=== PATIENT | female | born 1990 | race Caucasian/White ===

== ENCOUNTER 2016-08-19 18:26 | Emergency (ER) ==
[2016-08-19 18:39] VITALS: BP 119/71; TEMP 97.6; BMI 33.0
[2016-08-19 19:18] LABS: BILIRUBIN,URINE Negative (NEGATIVE); KETONES,URINE Negative (NEGATIVE); LEUKOCYTE ESTERASE ,URINE Negative (NEGATIVE); NITRITE,URINE Negative (NEGATIVE); PROTEIN,URINE Negative (NEGATIVE); URINE, BLOOD Negative (NEGATIVE)
[2016-08-19 19:19] LABS: ADD URINE MICROSCOPIC YES
--- NOTE | 2016-08-19 19:25 | ED.PDOC ---
General ED Provider: Dr. BORIS CALDERON-ER Chief Complaint: Respiratory Complaint Stated Complaint: im coughing up yellow stuff for one week=--no fever or hemoptysis Time Seen by Physician: 19:23 Mode of Arrival: Walk-In Information Source: Patient Exam Limitations: No limitations Nursing and Triage Documentation Reviewed and Agree: Yes Respiratory Complaint Exam - Respiratory Complaint/Exam Onset/Duration: 3 days Symptoms Are: Still present Timing: Intermittent Initial Severity: Mild Current Severity: Mild Location: Chest Character: Reports: Productive cough Aggravating: Reports: URI Alleviating: Reports: None Associated Signs and Symptoms: Reports: URI, Nasal congestion, Sore throat. Denies: Rapid breathing, Dyspnea, Fever, Chills, Chest pain, Pleuritic chest pain, Wheezing, Hemoptysis, Dizziness, Calf pain, Calf swelling, Edema, Hoarseness, Sinus discomfort, Vomiting, Weight loss, Decreased oral intake, Increased thirst, Increased appetite, Increased urination History of Healthcare-Acquired Pneumonia: No Related Surgical History: Reports: None Pulmonary Embolism Risk Factors: Bedrest Cardiac Risk Factors: Reports: Smoking Pseudomonas Risk Factors: Reports: None Tuberculosis Risk Factors: Reports: Smoking Status Asthmaticus Risk Factors: Reports: None Home Oxygen Use: Yes Recent Stress Test: No Recent Echo/LV Function: No Current Antibiotic Use: No Current Asthma Medication Use: No Respiratory Distress: None Inadequate Respiratory Effort: No Dysphagia Present: No Stridor Present: No JVD Present: No Accessory Muscle Use: No Retractions: Not Present Diminished Breath Sounds: No Sinus Tenderness: None Grunting Respirations: No Kussmaul Respirations: No Differential Diagnoses: Bronchitis Review of Systems - Review Of Systems Constitutional: Reports: No symptoms Eyes: Reports: No symptoms Ears, Nose, Mouth, Throat: Reports: Nose discharge Respiratory: Reports: Cough Cardiac: Reports: No symptoms GI: Reports: No symptoms : Reports: No symptoms Musculoskeletal: Reports: No symptoms Skin: Reports: No symptoms Neurological: Reports: No symptoms Endocrine: Reports: No symptoms Hematologic/Lymphatic: Reports: No symptoms All Other Systems: Reviewed and Negative Past Medical History - Past Medical History Previously Healthy: Yes Endocrine: Reports: None Cardiovascular: Reports: None Respiratory: Reports: None Hematological: Reports: None Gastrointestinal: Reports: None Genitourinary: Reports: None Neuro/Psych: Reports: Anxiety, Depression Musculoskeletal: Reports: None Cancer: Reports: None Last Menstrual Period: 02/21 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 - Surgical History General Surgical History: Reports: (x2), Cholecystectomy - Family History Family History: Reports: Heart (FATHER COPD AND CAD), Diabetes (PT WIOTH HYPERGLYCEMIAL AND TOXEMIA FIRST ), Lung, Liver, Other (MOTHER HEP C AND PSORIASIS), Unknown - Social History Smoking Status: Current some day smoker Hx Substance Use: No Alcohol Screening: None - Immunizations Tetanus Shot up to Date: Yes Physical Exam - Physical Exam Appearance: Well-appearing, No pain distress, Well-nourished Eyes: NICOLA, EOMI, Conjunctiva clear ENT: Ears normal, Nose normal, Oropharynx normal Neck: Supple Respiratory: Airway patent, Breath sounds clear, Breath sounds equal, Respirations nonlabored Cardiovascular: RRR, Pulses normal, No rub, No murmur GI/: Soft, Nontender, No masses, Bowel sounds normal, No Organomegaly Musculoskeletal: Normal strength, ROM intact, No edema, No calf tenderness Skin: Warm, Dry, Normal color Neurological: Sensation intact, Motor intact, Reflexes intact, Cranial nerves intact, Alert, Oriented Psychiatric: Affect appropriate, Mood appropriate Re-Evaluation - Re-Evaluation Time of Re-Evaluation: 19:25 Status: Unchanged Vital Signs Stable: Yes Pain Level: 0 Appearance: NAD Lungs: Clear Skin: Warm and Dry Neuro: Alert and Oriented X3 CV: RRR Critical Care Note - Critical Care Note Total Time (mins): 0 Course - Course Orders, Labs, Meds: Lab Review 08/19/16 19:00 Urine Color Yellow Urine Clarity Cloudy Urine pH 8.0 Ur Specific [place] 1.020 Urine Protein Negative Urine Glucose (UA) Negative Urine Ketones Negative Urine Blood Negative Urine Nitrite Negative Urine Bilirubin Negative Urine Urobilinogen 0.2 Ur Leukocyte Esterase Negative Ur Squamous Epith Cells Pending Orders Category Date Time Status URINALYSIS C & S IF INDICATED Stat LAB 08/19/16 19:00 Results URINE CULTURE Stat LAB 08/19/16 19:00 Received Vital Signs: Temp Pulse Resp BP Pulse Ox 08/19/16 18:28 97.6 F 116 H 20 119/71 97 Departure - Departure Time of Disposition: 19:25 Disposition: HOME SELF-CARE Discharge Problem: Bronchitis Instructions: Acute Bronchitis (ED) Condition: Good Pt referred to PMD for follow-up: Yes Additional Instructions: keflex 2550mg qid x 7days--stop smoking...f/u with ob Allergies/Adverse Reactions: Allergies horse dander Allergy (Mild, Verified 08/19/16 18:40) rash and itchy rabbit dander Allergy (Mild, Verified 08/19/16 18:40) rash and itchy AUSSIE SHAMPOO Adverse Reaction (Uncoded 08/19/16 18:40) Rash Snapple drink Adverse Reaction (Uncoded 08/19/16 18:40) Home Medications: Ambulatory Orders 1 [No Reported Medications] 08/19/16 Disposition Discussed With: Patient
== END 2016-08-19 19:33 | disposition home or self-care (01) ==
LOC: ED 18:26
DX: J20.9 Acute bronchitis, unspecified (principal); F17.210 Nicotine dependence, cigarettes, uncomplicated
CPT/HCPCS: 81001; 87086; 99283

== ENCOUNTER 2016-11-19 20:02 | Emergency (ER) ==
[2016-11-19 20:14] VITALS: BP 131/87; TEMP 97.9; BMI 33.8
[2016-11-19] MEDS ORDERED: ZOFRAN 4 MG/2 ML IM STA (20:23)
[2016-11-19] MEDS ORDERED: DEMEROL 25 MG/ML SYRINGE IM STA (20:23)
[2016-11-19 20:33] LABS: BASOPHILS # (AUTO) 0.1 K/uL (0-0.2); BASOPHILS % (AUTO) 0.9 % (0.0-3.0); EOSINOPHILS # (AUTO) 0.6 K/ul (0.0-0.7); EOSINOPHILS % (AUTO) 5.5 % (0.0-7.0); HEMATOCRIT 31.2 % (37.0-47.0); HEMOGLOBIN 10.6 g/dl (12.0-16.0); IMMATURE GRANULOCYTE % (AUTO) 0.8 % (0.0-5.0); LYMPHOCYTES % (AUTO) 28.7 (10.0-50.0); MEAN CORPUSCULAR HEMOGLOBIN 31.7 pg (27.0-31.0); MEAN CORPUSCULAR VOLUME 93.4 fl (81.0-99.0); MONOCYTES # (AUTO) 0.8 K/uL (0.4-2.0); MONOCYTES % (AUTO) 7.6 (0-10); NEUTROPHILS % (AUTO) 56.5; PLATELET COUNT 340 10^3/uL (140-440); RED BLOOD COUNT 3.34 10^6/ul (4.20-5.40); WHITE BLOOD COUNT 10.56 K/ul (4.6-10.2)
--- NOTE | 2016-11-19 20:48 | ED.PDOC ---
General ED Provider: Dr. JOSE BENNETT Chief Complaint: Shoulder Pain/Injury Stated Complaint: Patient had c section on wednesday, she is been hurting in surgical site more and called the surgeon, he suggested to come to ER for the evaluation. Time Seen by Physician: 20:46 Mode of Arrival: Walk-In Information Source: Patient Nursing and Triage Documentation Reviewed and Agree: Yes GI Complaint Exam - Abdominal Pain Complaint/Exam Onset: Gradual Symptoms Are: Still present Timing: Constant Initial Severity: Moderate Current Severity: Moderate Location of Pain: Discrete Character: Reports: Dull, Aching Aggravating: Reports: Movement, Deep breaths Alleviating: Reports: None Associated Signs and Symptoms: Reports: Nausea. Denies: Diaphoresis, Fever, Cough, Chest pain, Dizziness, Back pain, Constipation, Blood in stool, Dysuria, Urinary frequency, Decreased urine output, Decreased appetite, Vaginal bleeding , Vaginal discharge, Vomiting, Diarrhea, Sore throat, Decreased activity AAA Risk Factors: Reports: None Cardiac Risk Factors: Reports: None Ectopic Risk Factors: Reports: None Ovarian Torsion Risk Factors: Reports: None Surgical Obstruction Risk Factors: Reports: None Related Surgical History: Reports: None (c section) Differential Diagnoses: Other (intra abdominal pain) Review of Systems - Review Of Systems Constitutional: Reports: No symptoms Eyes: Reports: No symptoms Ears, Nose, Mouth, Throat: Reports: No symptoms Respiratory: Reports: No symptoms Cardiac: Reports: No symptoms GI: Reports: Abdominal pain : Reports: No symptoms Musculoskeletal: Reports: No symptoms Skin: Reports: No symptoms Neurological: Reports: No symptoms Endocrine: Reports: No symptoms Hematologic/Lymphatic: Reports: No symptoms All Other Systems: Reviewed and Negative Past Medical History - Past Medical History Previously Healthy: Yes Endocrine: Reports: None Cardiovascular: Reports: None Respiratory: Reports: None Hematological: Reports: None Gastrointestinal: Reports: None Genitourinary: Reports: None Neuro/Psych: Reports: Anxiety, Depression Musculoskeletal: Reports: None Cancer: Reports: None Last Menstrual Period: just gave last wednesday 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 - Surgical History General Surgical History: Reports: (x2), Cholecystectomy - Family History Family History: Reports: Heart (FATHER COPD AND CAD), Diabetes (PT WIOTH HYPERGLYCEMIAL AND TOXEMIA FIRST ), Lung, Liver, Other (MOTHER HEP C AND PSORIASIS), Unknown - Social History Smoking Status: Current some day smoker Smoking Cessation Counseling Time: > 3 min - 10 min Hx Substance Use: No Alcohol Screening: None Physical Exam - Physical Exam Appearance: Ill-appearing, Obese Pain Distress: Moderate Eyes: NICOLA, EOMI, Conjunctiva clear ENT: Ears normal, Nose normal, Oropharynx normal Respiratory: Airway patent, Breath sounds clear, Breath sounds equal, Respirations nonlabored Cardiovascular: RRR, Pulses normal, No rub, No murmur GI/: Tender Musculoskeletal: Normal strength, ROM intact, No edema, No calf tenderness Skin: Warm, Dry, Normal color Neurological: Sensation intact, Motor intact, Reflexes intact, Cranial nerves intact, Alert, Oriented Psychiatric: Affect appropriate, Mood appropriate Interpretation - Radiology Interpretation Radiology Interpretation By: Radiologist Radiology Results: Negative Exam Interpreted: CT Scan Critical Care Note - Critical Care Note Total Time (mins): 0 Course - Course Hematology/Chemistry: 11/19/16 20:28 11/19/16 20:28 Orders, Labs, Meds: Lab Review 11/19/16 20:28 WBC 10.56 H RBC 3.34 L Hgb 10.6 L Hct 31.2 L MCV 93.4 MCH 31.7 H MCHC 34.0 RDW Coeff of Kristy 13.3 Plt Count 340 Immature Gran % (Auto) 0.8 Neut % (Auto) 56.5 Lymph % (Auto) 28.7 [place] % (Auto) 7.6 Eos % (Auto) 5.5 Baso % (Auto) 0.9 Immature Gran # (Auto) 0.1 Neut # 6.0 Lymph # 3.0 [place] # 0.8 Eos # 0.6 Baso # 0.1 Sodium 138 Potassium 3.9 Chloride 104 Carbon Dioxide 23 Anion Gap 14.9 BUN 14 Creatinine 0.77 Estimated GFR (MDRD) 91.00 BUN/Creatinine Ratio 18.18 Glucose 88 Calcium 9.1 Total Bilirubin 0.43 AST 40 H ALT 26 Alkaline Phosphatase 95 Total Protein 6.3 L Albumin 2.7 L Globulin 3.6 Albumin/Globulin Ratio 0.75 Orders Category Date Time Status CBC W/ AUTO DIFF Stat LAB 11/19/16 20:28 Completed COMPREHENSIVE METABOLIC PANEL Stat LAB 11/19/16 20:28 Completed Meperidine HCl/Pf [Demerol 25 mg/ml Syringe] MEDS 11/19/16 20:23 Discontinued 25 mg IM ONCE STA Ondansetron HCl/Pf [Zofran 4 mg/2 ml] MEDS 11/19/16 20:23 Discontinued 4 mg IM ONCE STA CT ABDOMEN/PELVIS WO CONTRAST Stat RADS 11/19/16 20:23 Completed Medications Discontinued Medications Generic Name Dose Route Start Last Admin Trade Name Freq PRN Reason Stop Dose Admin Meperidine HCl 25 mg 11/19/16 20:23 11/19/16 20:37 Demerol 25 Mg/Ml Syringe IM 11/19/16 20:24 25 mg ONCE STA Administration Ondansetron HCl 4 mg 11/19/16 20:23 11/19/16 20:37 Zofran 4 Mg/2 Ml IM 11/19/16 20:24 4 mg ONCE STA Administration Vital Signs: Temp Pulse Resp BP Pulse Ox 11/19/16 20:03 97.9 F 100 H 16 131/87 95 Departure - Departure Time of Disposition: 22:00 Disposition: HOME SELF-CARE Discharge Problem: Abdominal pain Qualifiers: Abdominal location: generalized Qualifier Code: (R10.84) Generalized abdominal pain Instructions: Abdominal Pain (ED) Condition: Good Pt referred to PMD for follow-up: Yes Additional Instructions: INCREASE HYDRATION IRON PILLS OTC NEEDS F/U WITH SURGEON. Allergies/Adverse Reactions: Allergies horse dander Allergy (Mild, Verified 11/19/16 20:12) rash and itchy rabbit dander Allergy (Mild, Verified 11/19/16 20:12) rash and itchy AUSSIE SHAMPOO Adverse Reaction (Uncoded 11/19/16 20:12) Rash Snapple drink Adverse Reaction (Uncoded 11/19/16 20:12) Home Medications: Ambulatory Orders Diazepam 5 mg PO TID PRN 11/19/16 Hydrocodone/Acetaminophen [Hydrocodon-Acetaminophen 5-325] 1 - 2 tab PO Q6H PRN 11/19/16 Ibuprofen 600 mg PO Q6H PRN 11/19/16 Disposition Discussed With: Patient, Family
[2016-11-19 21:03] LABS: ALBUMIN 2.7 g/dL (3.4-5.0); ALBUMIN/GLOBULIN RATIO 0.75; ANION GAP 14.9; BILIRUBIN,TOTAL 0.43 mg/dL (0.00-1.20); BUN/CREATININE RATIO 18.18; CALCIUM 9.1 mg/dL (8.2-10.2); CREATININE 0.77 mg/dL (0.60-1.30); POTASSIUM 3.9 mmol/L (3.5-5.10); TOTAL PROTEIN 6.3 g/dL (6.4-8.2)
--- NOTE | 2016-11-19 21:46 | CT ---
EXAM: CT Abdomen without contrast. CT Pelvis without contrast. HISTORY: Recent . Possible intra-abdominal bleed. COMPARISON: 01/11/2014. TECHNIQUE: Multiple axial images of the abdomen and pelvis were obtained without intravenous contra st. Images were reformatted in the coronal plane. FINDINGS: Please note that evaluation of the abdominal and pelvic structures is limited due to lack of intravenous contrast. Linear opacities and ground-glass opacities seen in the left lower lobe. No acute osseous abnormali ty identified. Gallbladder is absent. The liver, pancreas, spleen, adrenal glands, and kidneys demonstrate normal contour. No calcified renal stones or hydronephrosis identified. The bowel is normal in course and caliber without evidence for obstruction or inflammatory process. The appendix is normal. Uterus is enlarged. There is a small amount of high-density material and air within the endometrial cavity. No significant intraperitoneal free fluid identified. Subcutane ous edema is present within the anterior abdomen and pelvis. Note made of section scar wit h associated edema. No large subcutaneous fluid collection detected. Ventral hernia suggested on ax ial image 109 and sagittal image 62 with defect measuring approximately 2.5 x 2.6 cm. IMPRESSION: 1. Findings consistent recent section. Small amount of blood within endometrial canal. N o large hematoma identified. 2. Left lower lobe atelectasis or pneumonia.
== END 2016-11-19 22:29 | disposition home or self-care (01) ==
LOC: ED 20:02
DX: R10.84 Generalized abdominal pain (principal); G89.18 Other acute postprocedural pain; F17.210 Nicotine dependence, cigarettes, uncomplicated
CPT/HCPCS: 36415; 80053; 85025; 96372; 99283

== ENCOUNTER 2017-01-06 19:42 | Emergency (ER) ==
[2017-01-06 19:52] VITALS: BP 112/73; TEMP 98.3; BMI 34.9
[2017-01-06] MEDS ORDERED: TORADOL IM STA (21:07)
[2017-01-06 21:09] LABS: BILIRUBIN,URINE Negative (NEGATIVE); KETONES,URINE Negative (NEGATIVE); LEUKOCYTE ESTERASE ,URINE 2+ (NEGATIVE); NITRITE,URINE Positive (NEGATIVE); PH,URINE 5.5 (5-9); PROTEIN,URINE 1+ (NEGATIVE); URINE, BLOOD 2+ (NEGATIVE)
--- NOTE | 2017-01-06 21:10 | ED.PDOC ---
General ED Provider: Dr. JOSE BENNETT Chief Complaint: Back Pain Stated Complaint: Been hurting in the lower back, frequency of urination, urgency. Time Seen by Physician: 21:09 Mode of Arrival: Walk-In Information Source: Patient Primary Care Provider: DIEGO RAINEY Nursing and Triage Documentation Reviewed and Agree: Yes Musculoskeletal Complaint Exam - Back Pain Complaint/Exam Mechanism of Injury: Reports: No known trauma Symptoms Are: Still present Timing: Constant Episodes Lasting: Hours Initial Severity: Mild Current Severity: Mild Location: Reports: Discrete Character: Reports: Aching Aggravating: Reports: None Alleviating: Reports: None Associated Signs and Symptoms: Reports: Flank pain. Denies: Swelling, Redness, Bruising, Fever, Weakness, Numbness, Tingling, Abdominal pain, Bladder incontinence, Bowel incontinence, Weight loss, Pain with weight bearing TAD Risk Factors: Reports: None AAA Risk Factors: Reports: None Cauda Equina Risk Factors: Reports: None Epidural Abcess Risk Factors: Reports: None Related Surgical History: Reports: None Focal Tenderness: Yes Paraspinal Muscle Tenderness: No Paraspinal Muscle Spasm: No Scoliosis: No Lordosis: No Kyphosis: No SLR Test: Right Negative, Left Negative Hip Motion Testing Pain: Right Negative, Left Negative Focal Weakness: Present: None Focal Sensory Loss: Present: None Gait: Present: Normal Differential Diagnoses: Other (uti) Review of Systems - Review Of Systems Constitutional: Reports: No symptoms Eyes: Reports: No symptoms Ears, Nose, Mouth, Throat: Reports: No symptoms Respiratory: Reports: No symptoms Cardiac: Reports: No symptoms GI: Reports: No symptoms : Reports: Burning, Dysuria, Frequency Musculoskeletal: Reports: Back pain Skin: Reports: No symptoms Neurological: Reports: No symptoms Endocrine: Reports: No symptoms Hematologic/Lymphatic: Reports: No symptoms All Other Systems: Reviewed and Negative Past Medical History - Past Medical History Previously Healthy: Yes Endocrine: Reports: None Cardiovascular: Reports: None Respiratory: Reports: None Hematological: Reports: None Gastrointestinal: Reports: None Genitourinary: Reports: None Neuro/Psych: Reports: Anxiety, Depression Musculoskeletal: Reports: None Cancer: Reports: None Last Menstrual Period: 1 week 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 - Surgical History General Surgical History: Reports: (x2), Cholecystectomy - Family History Family History: Reports: Heart (FATHER COPD AND CAD), Diabetes (PT WIOTH HYPERGLYCEMIAL AND TOXEMIA FIRST ), Lung, Liver, Other (MOTHER HEP C AND PSORIASIS), Unknown - Social History Smoking Status: Current every day smoker, Light tobacco smoker Smoking Cessation Counseling Time: > 3 min - 10 min Hx Substance Use: No Alcohol Screening: Occasionally Physical Exam - Physical Exam Appearance: Well-appearing, No pain distress, Well-nourished Eyes: NICOLA, EOMI, Conjunctiva clear ENT: Ears normal, Nose normal, Oropharynx normal Respiratory: Airway patent, Breath sounds clear, Breath sounds equal, Respirations nonlabored Cardiovascular: RRR, Pulses normal, No rub, No murmur GI/: Soft, Nontender, No masses, Bowel sounds normal, No Organomegaly Musculoskeletal: Normal strength, ROM intact, No edema, No calf tenderness Skin: Warm, Dry, Normal color Neurological: Sensation intact, Motor intact, Reflexes intact, Cranial nerves intact, Alert, Oriented Psychiatric: Affect appropriate, Mood appropriate Critical Care Note - Critical Care Note Total Time (mins): 0 Course - Course Hematology/Chemistry: 01/06/17 21:10 01/06/17 21:10 Orders, Labs, Meds: Lab Review 01/06/17 01/06/17 20:40 21:10 WBC 14.29 H RBC 4.12 L Hgb 12.7 Hct 37.3 MCV 90.5 MCH 30.8 MCHC 34.0 RDW Coeff of Kristy 12.5 Plt Count 368 Immature Gran % (Auto) 0.3 Neut % (Auto) 58.5 Lymph % (Auto) 29.6 [place] % (Auto) 6.6 Eos % (Auto) 4.1 Baso % (Auto) 0.9 Immature Gran # (Auto) 0.0 Neut # 8.4 H Lymph # 4.2 H [place] # 1.0 Eos # 0.6 Baso # 0.1 Sodium 142 Potassium 3.7 Chloride 108 H Carbon Dioxide 25 Anion Gap 12.7 BUN 7 Creatinine 0.79 Estimated GFR (MDRD) 88.00 BUN/Creatinine Ratio 8.86 Glucose 98 Calcium 9.3 Total Bilirubin 0.27 AST 15 ALT 16 Alkaline Phosphatase 83 Total Protein 7.0 Albumin 3.7 Globulin 3.3 Albumin/Globulin Ratio 1.12 Urine Color Yellow Urine Clarity Cloudy Urine pH 5.5 Ur Specific [place] 1.015 Urine Protein 1+ Urine Glucose (UA) Negative Urine Ketones Negative Urine Blood 2+ Urine Nitrite Positive Urine Bilirubin Negative Urine Urobilinogen 0.2 Ur Leukocyte Esterase 2+ Urine Microscopic RBC 10-20 Urine Microscopic WBC 20-30 Ur Squamous Epith Cells 5-10 Urine Bacteria 2+ Orders Category Date Time Status CBC W/ AUTO DIFF Stat LAB 01/06/17 21:10 Completed CMP [COMPREHENSIVE METABOLIC PANEL] Stat LAB 01/06/17 21:10 Completed UA [URINALYSIS C & S IF INDICATED] Stat LAB 01/06/17 20:40 Completed URINE CULTURE Stat LAB 01/06/17 21:15 Received Ceftriaxone Sodium [Rocephin] MEDS 01/06/17 21:45 Stat 1 gm IM ONCE STA Ketorolac Tromethamine [Toradol] MEDS 01/06/17 21:07 Discontinued 30 mg IM ONCE STA Lidocaine HCl/Pf [Lidocaine 1 % Amp 5 ml (Sutures)] MEDS 01/06/17 21:45 Stat 2.1 ml IM ONCE STA Medications Generic Name Dose Route Start Last Admin Trade Name Freq PRN Reason Stop Dose Admin Ceftriaxone Sodium 1 gm 01/06/17 21:45 Rocephin IM 01/06/17 21:46 ONCE STA Lidocaine HCl 2.1 ml 01/06/17 21:45 Lidocaine 1 % Amp 5 Ml (Sutures) IM 01/06/17 21:46 ONCE STA Discontinued Medications Generic Name Dose Route Start Last Admin Trade Name Freq PRN Reason Stop Dose Admin Ketorolac Tromethamine 30 mg 01/06/17 21:07 01/06/17 21:28 Toradol IM 01/06/17 21:08 30 mg ONCE STA Administration Vital Signs: Temp Pulse Resp BP Pulse Ox 01/06/17 19:44 98.3 F 89 20 112/73 96 Departure - Departure Time of Disposition: 21:47 Disposition: HOME SELF-CARE Discharge Problem: Urinary tract infection Qualifiers: Urinary tract infection type: acute cystitis Hematuria presence: with hematuria Qualifier Code: (N30.01) Acute cystitis with hematuria Instructions: Urinary Tract Infection in Women (ED) Condition: Stable Pt referred to PMD for follow-up: Yes Additional Instructions: Increase hydration take medications with food. Tylenol prn Prescriptions: Sulfamethoxazole/Trimethoprim [Bactrim Ds 800/160 mg] 1 tab PO Q12HR #14 tablet Allergies/Adverse Reactions: Allergies horse dander Allergy (Mild, Verified 11/19/16 20:12) rash and itchy rabbit dander Allergy (Mild, Verified 11/19/16 20:12) rash and itchy AUSSIE SHAMPOO Adverse Reaction (Uncoded 11/19/16 20:12) Rash Green depilatory Adverse Reaction (Uncoded 01/06/17 19:52) Snapple drink Adverse Reaction (Uncoded 11/19/16 20:12) Home Medications: Ambulatory Orders Diazepam 5 mg PO TID 11/19/16 Sulfamethoxazole/Trimethoprim [Bactrim Ds 800/160 mg] 1 tab PO Q12HR #14 tablet 01/06/17 Disposition Discussed With: Patient
[2017-01-06 21:14] LABS: BASOPHILS # (AUTO) 0.1 K/uL (0-0.2); BASOPHILS % (AUTO) 0.9 % (0.0-3.0); EOSINOPHILS # (AUTO) 0.6 K/ul (0.0-0.7); EOSINOPHILS % (AUTO) 4.1 % (0.0-7.0); HEMATOCRIT 37.3 % (37.0-47.0); HEMOGLOBIN 12.7 g/dl (12.0-16.0); IMMATURE GRANULOCYTE % (AUTO) 0.3 % (0.0-5.0); LYMPHOCYTES # (AUTO) 4.2 K/uL (0.60-3.4); LYMPHOCYTES % (AUTO) 29.6 (10.0-50.0); MEAN CORPUSCULAR HEMOGLOBIN 30.8 pg (27.0-31.0); MEAN CORPUSCULAR VOLUME 90.5 fl (81.0-99.0); MONOCYTES % (AUTO) 6.6 (0-10); NEUTROPHILS # (AUTO) 8.4 K/ul (2.0-6.9); NEUTROPHILS % (AUTO) 58.5; PLATELET COUNT 368 10^3/uL (140-440); RED BLOOD COUNT 4.12 10^6/ul (4.20-5.40); WHITE BLOOD COUNT 14.29 K/ul (4.6-10.2)
[2017-01-06 21:15] LABS: ADD URINE MICROSCOPIC YES; BACTERIA,URINE 2+ (NOT PRESENT)
[2017-01-06 21:31] LABS: ALBUMIN 3.7 g/dL (3.4-5.0); ALBUMIN/GLOBULIN RATIO 1.12; ANION GAP 12.7; BILIRUBIN,TOTAL 0.27 mg/dL (0.00-1.20); BUN/CREATININE RATIO 8.86; CALCIUM 9.3 mg/dL (8.2-10.2); CREATININE 0.79 mg/dL (0.60-1.30); POTASSIUM 3.7 mmol/L (3.5-5.10)
[2017-01-06] MEDS ORDERED: ROCEPHIN IM STA (21:45)
[2017-01-06] MEDS ORDERED: LIDOCAINE 1 % AMP 5 ML (SUTURES) IM STA (21:45)
== END 2017-01-06 22:10 | disposition home or self-care (01) ==
LOC: ED 19:42
DX: N30.01 Acute cystitis with hematuria (principal); F17.210 Nicotine dependence, cigarettes, uncomplicated
CPT/HCPCS: 36415; 80053; 81001; 85025; 87086; 87186; 96372; 99283; 99284

== ENCOUNTER 2017-05-28 12:21 | Outpatient (CLI) ==
[2017-05-28 12:26] LABS: BASOPHILS # (AUTO) 0.1 K/uL (0-0.2); EOSINOPHILS # (AUTO) 0.5 K/ul (0.0-0.7); EOSINOPHILS % (AUTO) 4.6 % (0.0-7.0); HEMATOCRIT 38.3 % (37.0-47.0); HEMOGLOBIN 13.2 g/dl (12.0-16.0); IMMATURE GRANULOCYTE % (AUTO) 0.5 % (0.0-5.0); LYMPHOCYTES # (AUTO) 3.2 K/uL (0.60-3.4); LYMPHOCYTES % (AUTO) 28.7 (10.0-50.0); MEAN CORPUSCULAR HEMOGLOBIN 30.9 pg (27.0-31.0); MEAN CORPUSCULAR HGB CONC 34.5 (31.8-35.4); MEAN CORPUSCULAR VOLUME 89.7 fl (81.0-99.0); MONOCYTES # (AUTO) 0.7 K/uL (0.4-2.0); MONOCYTES % (AUTO) 6.2 (0-10); NEUTROPHILS # (AUTO) 6.5 K/ul (2.0-6.9); PLATELET COUNT 353 10^3/uL (140-440); RED BLOOD COUNT 4.27 10^6/ul (4.20-5.40); WHITE BLOOD COUNT 11.02 K/ul (4.6-10.2)
[2017-05-28 12:31] LABS: URINE PREGNANCY INTERNAL QC INTERNAL QC VALID
[2017-05-28 12:35] LABS: BILIRUBIN,URINE Negative (NEGATIVE); KETONES,URINE Negative (NEGATIVE); LEUKOCYTE ESTERASE ,URINE 2+ (NEGATIVE); NITRITE,URINE Negative (NEGATIVE); PH,URINE 7.5 (5-9); PROTEIN,URINE Negative (NEGATIVE); URINE, BLOOD 2+ (NEGATIVE)
[2017-05-28 12:36] LABS: ADD URINE MICROSCOPIC YES
[2017-05-28 12:40] LABS: ALBUMIN 3.8 g/dL (3.4-5.0); ALBUMIN/GLOBULIN RATIO 1.19; ANION GAP 14.6; BILIRUBIN,TOTAL 0.39 mg/dL (0.00-1.20); BUN/CREATININE RATIO 10.81; CALCIUM 9.3 mg/dL (8.2-10.2); CREATININE 0.74 mg/dL (0.60-1.30); POTASSIUM 3.6 mmol/L (3.5-5.10)
== END 2017-05-28 12:22 | disposition home or self-care (01) ==
LOC: LAB 12:21
PROVIDERS: ATTEND Nurse Practitioner Family
DX: R10.9 Unspecified abdominal pain (principal); F31.9 Bipolar disorder, unspecified; Z72.0 Tobacco use
CPT/HCPCS: 36415; 80053; 81001; 81025; 82150; 83690; 85025

== ENCOUNTER 2017-06-01 09:37 | Outpatient (CLI) ==
--- NOTE | 2017-06-01 10:24 | CT ---
EXAM: CT of the abdomen pelvis without contrast History: Abdominal pain. Comparison: CT abdomen pelvis 11/19/2016 Technique: Multiplanar CT images through the abdomen pelvis were obtained without the administration of IV contrast Findings: Lung bases are free of consolidation. Subsegmental atelectasis seen within the lingula. No acute osseous abnormalities. No renal stones and no hydronephrosis. Status post cholecystectomy. No focal liver or splenic lesions. No peripancreatic inflammation. Adrenal glands are unremarkable. No dilated loops of bowel. The appendix is not dilated or inflamed. Scattered colonic stool. Adn exal structures appear appropriate for patient's age. Bladder is not well distended. No perirectal inflammation. Small fat-containing umbilical hernia. Scarring within the lower anterior abdominal w all. Impression: 1. No acute intra-abdominal or pelvic process. 2. Small fat-containing umbilical hernia.
== END 2017-06-01 09:38 | disposition home or self-care (01) ==
LOC: RAD 09:37
PROVIDERS: ATTEND Nurse Practitioner Family
DX: R10.9 Unspecified abdominal pain (principal)

== ENCOUNTER 2017-06-02 12:34 | Outpatient (CLI) | END 2017-06-02 12:35 | disposition home or self-care (01) | LOC: LAB 12:34 | PROVIDERS: ATTEND Nurse Practitioner Family | DX: R53.83 Other fatigue (principal) | CPT/HCPCS: 36415; 82306 ==

== ENCOUNTER 2017-11-26 16:51 | Outpatient (CLI) | END 2017-11-26 16:52 | disposition home or self-care (01) | LOC: FCC-LAB 16:51 | PROVIDERS: ATTEND Nurse Practitioner Family | DX: F31.9 Bipolar disorder, unspecified (principal); F41.9 Anxiety disorder, unspecified; R53.83 Other fatigue; E75.6 Lipid storage disorder, unspecified | CPT/HCPCS: 36415; 80053; 80061; 82306; 84439; 84443; 85025 ==

== ENCOUNTER 2017-12-10 14:40 | Outpatient (CLI) ==
--- NOTE | 2017-12-10 15:30 | CT ---
EXAM: CT abdomen with and without contrast. CT pelvis with and without contrast. HISTORY: Generalized abdominal pain. COMPARISON: 06/01/2017. TECHNIQUE: Multiple axial images of the abdomen and pelvis were obtained prior to and following intr avenous administration of 75 mL of Omnipaque-300, low osmolar. Images reformatted in the sagittal an d coronal plane. FINDINGS: Subpleural nodular densities in both lungs likely relate to subsegmental atelectasis. Oss eous structures are within normal limits for the patient's age. The gallbladder is absent. The liver, pancreas, spleen, adrenal glands, and kidneys are unremarkable . The bowel is normal in course and caliber without evidence for obstruction or inflammatory process. The appendix is normal. Fat-containing ventral hernia below the level of the umbilicus is unchanged. Small fat-containing umbilical hernia noted. Uterus demonstrates normal contour. Cystic structure within the left adnexa measures up to 3.6 cm di ameter. Smaller cystic focus seen in the right adnexa measuring up to 2.5 cm diameter. Trace amount of free pelvic fluid noted. Urinary bladder is unremarkable. No free air is seen. Multiple nonenl arged mesenteric lymph nodes are present, which are increased in size and number measuring up to 0.9 cm maximum diameter. section scar noted. IMPRESSION: 1. No acute inflammatory process in the abdomen or pelvis. 2. Nonspecific mesenteric lymph nodes which are increased in size and number since the prior study. 3. Small bilateral adnexal cysts. Correlate with ultrasound as warranted. 4. Stable ventral hernias.
== END 2017-12-10 14:41 | disposition home or self-care (01) ==
LOC: RAD 14:40
PROVIDERS: ATTEND Nurse Practitioner Family
DX: R10.84 Generalized abdominal pain (principal); N92.6 Irregular menstruation, unspecified; R31.9 Hematuria, unspecified; R30.0 Dysuria; Z20.2 Contact with and (suspected) exposure to infections with a predominantly sexual mode of transmission
CPT/HCPCS: 36415; 80053; 80074; 81001; 84702; 86592; 86631; 86695; 86696; 87389; 87800

== ENCOUNTER 2018-01-05 12:36 | Outpatient (CLI) | END 2018-01-05 12:37 | disposition home or self-care (01) | LOC: FCC-LAB 12:36 | PROVIDERS: ATTEND Family Medicine | DX: N30.01 Acute cystitis with hematuria (principal) | CPT/HCPCS: 87086 ==

== ENCOUNTER 2018-01-06 17:48 | Outpatient (CLI) | END 2018-01-06 17:49 | disposition home or self-care (01) | LOC: CAR 17:48 | PROVIDERS: ATTEND Psychiatry & Neurology Sleep Medicine | DX: G47.33 Obstructive sleep apnea (adult) (pediatric) (principal) ==

== ENCOUNTER 2018-02-10 21:57 | Emergency (ER) ==
[2018-02-10 22:17] VITALS: BP 108/60; TEMP 97.7; BMI 34.2
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
== END 2018-02-10 22:58 | disposition home or self-care (01) ==
LOC: ED 21:57
DX: T14.90XA Injury, unspecified, initial encounter (principal); Z98.890 Other specified postprocedural states; Y04.2XXA Assault by strike against or bumped into by another person, initial encounter; F17.210 Nicotine dependence, cigarettes, uncomplicated
CPT/HCPCS: 99282

== ENCOUNTER 2018-06-12 15:54 | Emergency (ER) ==
[2018-06-12 16:06] VITALS: BP 138/89; TEMP 97.3; BMI 31.7
--- NOTE | 2018-06-12 16:36 | ED.PDOC ---
General ED Provider: Dr. BORIS RAMAN Chief Complaint: Non-specific Complaint Stated Complaint: Has been nauseated has a recent heavey period. Worried about . Took several tests today which were positive. Has previous had tubal ligation and worried about tubal . Time Seen by Physician: 16:10 Mode of Arrival: Walk-In Information Source: Patient Exam Limitations: No limitations Primary Care Provider: CADEN HINOJOSA Nursing and Triage Documentation Reviewed and Agree: Yes Does patient meet sepsis criteria?: No If yes, has appropriate treatment been initiated?: No System Inflammatory Response Syndrome: Not Applicable Sepsis Protocol: For patient's 13 years and over: Temp is 96.8 and below OR 101 and greater Pulse >90 BPM Resp >20/minute Acutely Altered Mental Status Are patient's symptoms suggestive of a new infection, such as: -Pneumonia -Skin, Soft Tissue -Endocarditis -UTI -Bone, Joint Infection -Implantable Device -Acute Abdominal Infection -Wound Infection -Meningitis -Blood Stream Catheter Infection -Unknown Review of Systems - Review Of Systems Constitutional: Reports: No symptoms Eyes: Reports: No symptoms Ears, Nose, Mouth, Throat: Reports: No symptoms Respiratory: Reports: No symptoms Cardiac: Reports: No symptoms GI: Reports: Nausea : Reports: No symptoms, Frequency, Urgency Musculoskeletal: Reports: No symptoms Skin: Reports: No symptoms Neurological: Reports: No symptoms Endocrine: Reports: No symptoms Hematologic/Lymphatic: Reports: No symptoms All Other Systems: Reviewed and Negative Past Medical History - Past Medical History Previously Healthy: Yes Endocrine: Reports: None, Other (polycystic ovarian disease) Cardiovascular: Reports: None Respiratory: Reports: None Hematological: Reports: None Gastrointestinal: Reports: PUD, Other (Nausea) Genitourinary: Reports: None Neuro/Psych: Reports: Anxiety, Depression Musculoskeletal: Reports: None Cancer: Reports: None Last Menstrual Period: now 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 - Surgical History General Surgical History: Reports: (x2), Cholecystectomy - Family History Family History: Reports: Heart (FATHER COPD AND CAD), Diabetes (PT WIOTH HYPERGLYCEMIAL AND TOXEMIA FIRST ), Lung, Liver, Other (MOTHER HEP C AND PSORIASIS), Unknown - Social History Smoking Status: Current every day smoker, Heavy tobacco smoker Hx Substance Use: Yes (chastity) Alcohol Screening: None - Immunizations Tetanus Shot up to Date: Yes Physical Exam - Physical Exam Appearance: Well-appearing, No pain distress, Well-nourished Eyes: NICOLA, EOMI, Conjunctiva clear ENT: Ears normal, Nose normal, Oropharynx normal Respiratory: Airway patent, Breath sounds clear, Breath sounds equal, Respirations nonlabored Cardiovascular: RRR, Pulses normal, No rub, No murmur GI/: Soft, Nontender, No masses, Bowel sounds normal, No Organomegaly Musculoskeletal: Normal strength, ROM intact, No edema, No calf tenderness Skin: Warm, Dry, Normal color Neurological: Sensation intact, Motor intact, Reflexes intact, Cranial nerves intact, Alert, Oriented Psychiatric: Affect appropriate, Mood appropriate, Anxious Critical Care Note - Critical Care Note Total Time (mins): 0 Course - Course Hematology/Chemistry: 06/12/18 16:18 06/12/18 16:18 Orders, Labs, Meds: Lab Review 06/12/18 06/12/18 06/12/18 16:18 16:18 16:18 WBC 12.88 H RBC 4.33 Hgb 13.2 Hct 38.4 MCV 88.7 MCH 30.5 MCHC 34.4 RDW Coeff of Kristy 12.6 Plt Count 399 Immature Gran % (Auto) 0.4 Neut % (Auto) 51.0 Lymph % (Auto) 32.8 Cloud % (Auto) 6.8 Eos % (Auto) 8.2 H Baso % (Auto) 0.8 Immature Gran # (Auto) 0.1 Neut # (Auto) 6.6 Lymph # (Auto) 4.2 H Cloud # (Auto) 0.9 Eos # (Auto) 1.1 H Baso # (Auto) 0.1 Sodium 138.5 Potassium 3.40 L Chloride 102.7 Carbon Dioxide 28.5 Anion Gap 10.70 BUN 4.7 L Creatinine 0.66 Estimated GFR (MDRD) 107.00 BUN/Creatinine Ratio 7.12 Glucose 111.1 H Calcium 9.11 Serum , Qual Negative Urine Color Urine Clarity Urine pH Ur Specific [place] Urine Protein Urine Glucose (UA) Urine Ketones Urine Blood Urine Nitrite Urine Bilirubin Urine Urobilinogen Ur Leukocyte Esterase Urine Microscopic RBC Ur Squamous Epith Cells Urine Mucus 06/12/18 16:51 WBC RBC Hgb Hct MCV MCH MCHC RDW Coeff of Kristy Plt Count Immature Gran % (Auto) Neut % (Auto) Lymph % (Auto) Cloud % (Auto) Eos % (Auto) Baso % (Auto) Immature Gran # (Auto) Neut # (Auto) Lymph # (Auto) Cloud # (Auto) Eos # (Auto) Baso # (Auto) Sodium Potassium Chloride Carbon Dioxide Anion Gap BUN Creatinine Estimated GFR (MDRD) BUN/Creatinine Ratio Glucose Calcium Serum , Qual Urine Color Yellow Urine Clarity Clear Urine pH 6.5 Ur Specific [place] 1.015 Urine Protein Trace Urine Glucose (UA) Negative Urine Ketones Negative Urine Blood 3+ Urine Nitrite Negative Urine Bilirubin Negative Urine Urobilinogen 0.2 Ur Leukocyte Esterase Negative Urine Microscopic RBC 10-20 Ur Squamous Epith Cells 30-50 Urine Mucus 2+ Orders Category Date Time Status BMP [BASIC METABOLIC PANEL] Stat LAB 06/12/18 16:18 Completed CBC W/ AUTO DIFF Stat LAB 06/12/18 16:18 Completed HCG QUALITATIVE [SERUM ] Stat LAB 06/12/18 16:18 Completed UA [URINALYSIS C & S IF INDICATED] Stat LAB 06/12/18 16:51 Completed Vital Signs: Temp Pulse Resp BP Pulse Ox 06/12/18 15:55 97.3 F L 96 H 16 138/89 98 Departure - Departure Time of Disposition: 17:25 Disposition: HOME SELF-CARE Discharge Problem: Gastritis, PUD (peptic ulcer disease), DUB (dysfunctional uterine bleeding) Instructions: Dysfunctional Uterine Bleeding (ED), Gastritis (ED) Condition: Good Pt referred to PMD for follow-up: Yes (in next week see pcp and gas appliance adjuster) IPMP verified?: No Additional Instructions: Remain on bland diet, clear liquids diet advance, diet as tolerated, take meds as directed See PCP, GI and OB-INSTRUCTOR WARPER this week Prescriptions: Ondansetron [Zofran Odt] 4 mg PO Q8H PRN #10 tab.rapdis PRN Reason: nausea and vomiting Ranitidine HCl [Zantac] 150 mg PO BIDAC #60 tablet Allergies/Adverse Reactions: Allergies horse dander Allergy (Mild, Verified 06/12/18 16:04) rash and itchy rabbit dander Allergy (Mild, Verified 06/12/18 16:04) rash and itchy AUSSIE SHAMPOO Adverse Reaction (Uncoded 02/10/18 22:18) Rash Green depilatory Adverse Reaction (Uncoded 02/10/18 22:18) Snapple drink Adverse Reaction (Uncoded 02/10/18 22:18) Home Medications: Ambulatory Orders Ondansetron [Zofran Odt] 4 mg PO Q8H PRN #10 tab.rapdis 06/12/18 Ranitidine HCl [Zantac] 150 mg PO BIDAC #60 tablet 06/12/18 Disposition Discussed With: Patient GI Complaint Exam - Vomiting/Diarrhea Complaint/Exam Onset/Duration: 1-2 days Symptoms Are: Still present Initial Severity: Moderate Current Severity: Mild Character of Vomiting: Denies: Non-bilious Character of Diarrhea: Denies: Bloody, Watery, Mucoid, Malodorous Aggravating: Reports: Food, Liquids Alleviating: Reports: None Associated Signs and Symptoms: Reports: Cramping Recent Positive Test: Yes Use of Oral Contraceptives: No Use of Depoprovera: No Compliant With Contraceptive Use: No Non-GI Risk Factors: Reports: None
== END 2018-06-12 17:33 | disposition home or self-care (01) ==
LOC: ED 15:54
DX: K29.70 Gastritis, unspecified, without bleeding (principal); K27.9 Peptic ulcer, site unspecified, unspecified as acute or chronic, without hemorrhage or perforation; N93.8 Other specified abnormal uterine and vaginal bleeding; F17.210 Nicotine dependence, cigarettes, uncomplicated
CPT/HCPCS: 36415; 80048; 81001; 84703; 85025; 99282; 99283

== ENCOUNTER 2018-06-24 15:06 | Emergency (ER) ==
[2018-06-24 15:08] VITALS: BP 117/81; TEMP 98.5; BMI 30.2
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
[2018-06-24 16:09] LABS: URINE PREGNANCY TEST NEGATIVE (NEGATIVE)
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
== END 2018-06-24 17:27 | disposition home or self-care (01) ==
LOC: ED 15:06
DX: R07.89 Other chest pain (principal); S20.01XA Contusion of right breast, initial encounter; V89.2XXA Person injured in unspecified motor-vehicle accident, traffic, initial encounter; F17.210 Nicotine dependence, cigarettes, uncomplicated
CPT/HCPCS: 81025; 99283

== ENCOUNTER 2018-08-30 14:07 | Outpatient (CLI) | END 2018-08-30 14:24 | disposition short-term general hospital (02) | LOC: AMBL 14:07 | PROVIDERS: ATTEND Emergency Medicine | DX: R45.851 Suicidal ideations (principal); R00.0 Tachycardia, unspecified; F15.10 Other stimulant abuse, uncomplicated; F17.210 Nicotine dependence, cigarettes, uncomplicated ==

== ENCOUNTER 2019-04-07 01:09 | Emergency (ER) ==
[2019-04-07 01:20] VITALS: BMI 27.5
--- NOTE | 2019-04-07 01:58 | ED.PDOC ---
General <ZULMARHIANNON - Last Filed: 04/07/19 08:53> Stated Complaint: Brought in by SO Parnell; pt had stated suicide attempt with OD and that she would strangle herself. She is under arrest (possession of a stolen vehicle). When placed in the cage car she began to beat her head against the steel cage while enroute to the ER for psychiatric evaluation. Time Seen by Physician: 01:00 Mode of Arrival: Walk-In Information Source: Patient, Police Exam Limitations: Clinical condition (Initially uncooperative and had to be placed in hard leather restraints.) Nursing and Triage Documentation Reviewed and Agree: Yes Does patient meet sepsis criteria?: No System Inflammatory Response Syndrome: Not Applicable <JES DEE - Last Filed: 04/08/19 01:12> ED Provider: Dr. JES DEE Chief Complaint: Suicide Attempt Non-Overdose Primary Care Provider: CADEN HINOJOSA Sepsis Protocol: For patient's 13 years and over: Temp is 96.8 and below OR 101 and greater Pulse >90 BPM Resp >20/minute Acutely Altered Mental Status Are patient's symptoms suggestive of a new infection, such as: -Pneumonia -Skin, Soft Tissue -Endocarditis -UTI -Bone, Joint Infection -Implantable Device -Acute Abdominal Infection -Wound Infection -Meningitis -Blood Stream Catheter Infection -Unknown Psychological Complaint Exam - Overdose/Toxic Exposure Complaint/Exam Witnessed: No Treatment Prior To Arrival: None Associated Signs And Symptoms: Reports: Agitation. Denies: AMS, Seizure, Diaphoresis, Chest pain, Palpitations, Cyanosis, Short of air, Cough, Vomiting, Drooling, Intentional ingestion, Unintentional overdose, Pediatric ingestion Completed Suicide Risk Factors: None Gag Reflex Present: Yes Inability To Swallow Present: No Drooling Present: No Glascow Coma Scale (see protocol): 15 Miosis Present: No Mydriasis Present: No Nystagmus Present: No Aphasia: Present: None Gait: Present: Normal Patient Uncooperative For Exam: Yes Mood: Present: Angry, Anxious Appearance: Present: Unkempt Thought Process: Present: Illogical, Flight of ideas Insight: Present: Good Memory: Intact Danger To Others: No Patient Medically Stable For: Psych evaluation, Transfer Differential Diagnoses: Anxiety, Depression, Other (substance abuse ) <RHIANNON MAYA - Last Filed: 04/07/19 08:53> Review of Systems - Review Of Systems Constitutional: Reports: Other Eyes: Reports: No symptoms Ears, Nose, Mouth, Throat: Reports: No symptoms Respiratory: Reports: No symptoms Cardiac: Reports: No symptoms GI: Reports: No symptoms : Reports: No symptoms Musculoskeletal: Reports: No symptoms Skin: Reports: No symptoms Neurological: Reports: Anxiety, Depressed, Emotional problems Endocrine: Reports: No symptoms Hematologic/Lymphatic: Reports: No symptoms All Other Systems: Reviewed and Negative <RHIANNON MAYA - Last Filed: 04/07/19 08:53> - Review Of Systems Constitutional: Reports: Other (Uncooperative ) All Other Systems: Other (Minimally cooperative unable to elicit) <JES DEE - Last Filed: 04/08/19 01:12> Past Medical History - Past Medical History Previously Healthy: Yes Endocrine: Reports: None, Other (polycystic ovarian disease) Cardiovascular: Reports: None Respiratory: Reports: None Hematological: Reports: None Gastrointestinal: Reports: PUD, Other (Nausea) Genitourinary: Reports: None Neuro/Psych: Reports: Anxiety, Depression Musculoskeletal: Reports: None Cancer: Reports: None Last Menstrual Period: PRESENTLY 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 - Surgical History General Surgical History: Reports: (x2), Cholecystectomy - Family History Family History: Reports: Heart (FATHER COPD AND CAD), Diabetes (PT WIOTH HYPERGLYCEMIAL AND TOXEMIA FIRST ), Lung, Liver, Other (MOTHER HEP C AND PSORIASIS), Unknown - Social History Smoking Status: Current every day smoker, Heavy tobacco smoker Hx Substance Use: Yes ("SMOKE MARIJUANA" "METH") Alcohol Screening: Occasionally - Immunizations Tetanus Shot up to Date: Yes <JES DEE - Last Filed: 04/08/19 01:12> Physical Exam - Physical Exam Appearance: Well-nourished Ill-appearing: None Pain Distress: None Eyes: NICOLA ENT: Oropharynx normal Neck: Supple Respiratory: Airway patent, Breath sounds clear Cardiovascular: RRR, Pulses normal Skin: Warm, Dry, Normal color (Abrasion Left elbow) Psychiatric: Anxious (and aggressive) <JES DEE - Last Filed: 04/08/19 01:12> Interpretation - Service Greeter Time of Service Greeter Interpretation: 01:55 Rate: Normal Rhythm: Sinus Ectopy: None - EKG Interpretation Time of EKG #1: 01:57 Rate: Normal Rhythm: Sinus Ectopy: None Mooers: NL ST Segment: Normal Interpretation: No acute changes <JES DEE - Last Filed: 04/08/19 01:12> Critical Care Note - Critical Care Note Total Time (mins): 35 <JES DEE - Last Filed: 04/08/19 01:12> Course - Course Hematology/Chemistry: 04/07/19 01:45 04/07/19 01:45 <RHIANNON MAYA - Last Filed: 04/07/19 08:53> - Course Hematology/Chemistry: 04/07/19 01:45 04/07/19 01:45 <JES DEE - Last Filed: 04/08/19 01:12> - Course Orders, Labs, Meds: Lab Review 04/07/19 04/07/19 04/07/19 01:45 01:45 01:45 WBC 15.64 H RBC 4.41 Hgb 13.6 Hct 40.8 MCV 92.5 MCH 30.8 MCHC 33.3 RDW Coeff of Kristy 12.3 Plt Count 358 Immature Gran % (Auto) 0.4 Neut % (Auto) 74.0 Lymph % (Auto) 17.5 Long % (Auto) 5.0 Eos % (Auto) 2.4 Baso % (Auto) 0.7 Immature Gran # (Auto) 0.1 Neut # (Auto) 11.6 H Lymph # (Auto) 2.7 Long # (Auto) 0.8 Eos # (Auto) 0.4 Baso # (Auto) 0.1 Sodium 138.5 Potassium 3.43 L Chloride 102.4 Carbon Dioxide 27.2 Anion Gap 12.33 BUN 11.7 Creatinine 0.83 Estimated GFR (MDRD) 82.00 BUN/Creatinine Ratio 14.09 Glucose 115.1 H Calcium 9.31 Total Bilirubin 0.54 AST 21.2 ALT 23.5 Alkaline Phosphatase 89.2 Total Protein 7.72 Albumin 4.46 Globulin 3.26 Albumin/Globulin Ratio 1.36 TSH 0.549 Serum , Qual Negative Urine Color Urine Clarity Urine pH Ur Specific [place] Urine Protein Urine Glucose (UA) Urine Ketones Urine Blood Urine Nitrite Urine Bilirubin Urine Urobilinogen Ur Leukocyte Esterase Urine Microscopic RBC Urine Microscopic WBC Ur Squamous Epith Cells Salicylate Level mg/dL < 1.00 Urine Opiates Screen Ur Oxycodone Screen Urine Methadone Screen Ur Propoxyphene Screen Acetaminophen < 10.0 L Ur Barbiturates Screen U Tricyclic Antidepress Ur Phencyclidine Scrn Ur Amphetamine Screen U Methamphetamines Scrn U Benzodiazepines Scrn Urine Cocaine Screen U Cannabinoids Screen Plasma/Serum Alcohol < 10.0 04/07/19 04/07/19 06:57 06:57 WBC RBC Hgb Hct MCV MCH MCHC RDW Coeff of Kristy Plt Count Immature Gran % (Auto) Neut % (Auto) Lymph % (Auto) Long % (Auto) Eos % (Auto) Baso % (Auto) Immature Gran # (Auto) Neut # (Auto) Lymph # (Auto) Long # (Auto) Eos # (Auto) Baso # (Auto) Sodium Potassium Chloride Carbon Dioxide Anion Gap BUN Creatinine Estimated GFR (MDRD) BUN/Creatinine Ratio Glucose Calcium Total Bilirubin AST ALT Alkaline Phosphatase Total Protein Albumin Globulin Albumin/Globulin Ratio TSH Serum , Qual Urine Color Yellow Urine Clarity Clear Urine pH 7.0 Ur Specific [place] 1.020 Urine Protein Negative Urine Glucose (UA) Negative Urine Ketones Negative Urine Blood Trace-intact Urine Nitrite Negative Urine Bilirubin Negative Urine Urobilinogen 1.0 Ur Leukocyte Esterase 1+ Urine Microscopic RBC 0-2 Urine Microscopic WBC 2-5 Ur Squamous Epith Cells 0-2 Salicylate Level mg/dL Urine Opiates Screen Negative Ur Oxycodone Screen Negative Urine Methadone Screen Negative Ur Propoxyphene Screen Negative Acetaminophen Ur Barbiturates Screen Negative U Tricyclic Antidepress Negative Ur Phencyclidine Scrn Negative Ur Amphetamine Screen Positive U Methamphetamines Scrn Negative U Benzodiazepines Scrn Negative Urine Cocaine Screen Negative U Cannabinoids Screen Negative Plasma/Serum Alcohol Orders Category Date Time Status EKG-(ED ONLY) Stat CARDIO 04/07/19 01:34 Completed ED INDUSTRIAL SAFETY ENGINEER APPLIED ONCE EMERGENCY 04/07/19 01:34 Active Mental Health Consult [ED MENTAL HEALTH CONSULT] .ONCE EMERGENCY 04/07/19 03: 03 Active Restrain [ED RESTRAINTS] .ONCE EMERGENCY 04/07/19 03:01 Active Restrain [ED RESTRAINTS] .ONCE EMERGENCY 04/07/19 07:00 Active Restrain [ED RESTRAINTS] .ONCE EMERGENCY 04/07/19 10:07 Active Restrain [ED RESTRAINTS] .ONCE EMERGENCY 04/07/19 14:09 Active ACETAMINOPHEN Stat LAB 04/07/19 01:45 Completed BLOOD ALCOHOL Stat LAB 04/07/19 01:45 Completed CBC W/ AUTO DIFF Stat LAB 04/07/19 01:45 Completed COMPREHENSIVE METABOLIC PANEL Stat LAB 04/07/19 01:45 Completed DRUG SCREEN, URINE, RAPID Stat LAB 04/07/19 06:57 Completed HCG QUALITATIVE [SERUM ] Stat LAB 04/07/19 01:45 Completed SALICYLATE Stat LAB 04/07/19 01:45 Completed THYROID STIMULATING HORMONE Stat LAB 04/07/19 01:45 Completed URINALYSIS C & S IF INDICATED Stat LAB 04/07/19 06:57 Completed Haloperidol Lactate [Haldol] MEDS 04/07/19 10:07 Discontinued 5 mg IM ONCE STA Lorazepam Inj [Ativan] MEDS 04/07/19 17:24 Discontinued 1 mg IM ONCE STA Lorazepam Inj [Ativan] MEDS 04/07/19 10:07 Discontinued 2 mg IM ONCE STA Medications Discontinued Medications Generic Name Dose Route Start Last Admin Trade Name Freq PRN Reason Stop Dose Admin Haloperidol Lactate 5 mg 04/07/19 10:07 04/07/19 10:17 Haldol IM 04/07/19 10:08 5 mg ONCE STA Administration Lorazepam 2 mg 04/07/19 10:07 04/07/19 10:17 Ativan IM 04/07/19 10:08 2 mg ONCE STA Administration Lorazepam 1 mg 04/07/19 17:24 04/07/19 18:13 Ativan IM 04/07/19 17:25 Not Given ONCE STA Vital Signs: Temp Pulse Resp BP Pulse Ox 04/07/19 16:45 97.5 F L 86 20 100/67 99 04/07/19 16:01 79 100 04/07/19 15:28 78 20 100 04/07/19 14:58 841 H 20 100 04/07/19 14:43 86 16 99 04/07/19 13:59 66 16 100 04/07/19 12:29 90 16 100 04/07/19 11:29 92 H 16 99 04/07/19 10:26 96 H 20 99 04/07/19 02:25 109 H 20 124/86 100 04/07/19 01:10 99.6 F 117 H 20 128/82 98 Departure - Departure Pt referred to PMD for follow-up: Yes Disposition Discussed With: Patient <RHIANNON MAYA - Last Filed: 04/07/19 08:53> - Departure Time of Disposition: 18:15 IPMP verified?: No (N/A) <JES DEE - Last Filed: 04/08/19 01:12> - Departure Disposition: [facility] Discharge Problem: Substance abuse, Medically suitable for discharge, Suicide attempt Discharge Problem: (Ruled Out): Otitis media Condition: Good Additional Instructions: Take antibiotics as prescribed; follow up with primary care Allergies/Adverse Reactions: Allergies horse dander Allergy (Mild, Verified 04/07/19 01:20) rash and itchy rabbit dander Allergy (Mild, Verified 04/07/19 01:20) rash and itchy AUSSIE SHAMPOO Adverse Reaction (Uncoded 04/07/19 01:20) Rash Green depilatory Adverse Reaction (Uncoded 04/07/19 01:20) Snapple drink Adverse Reaction (Uncoded 04/07/19 01:20) Home Medications: Ambulatory Orders 1 [No Reported Medications] 04/07/19
[2019-04-07] MEDS ORDERED: ATIVAN IM STA ×2 (10:07→17:24)
[2019-04-07] MEDS ORDERED: HALDOL IM STA (10:07)
[2019-04-07 16:46] VITALS: BP 100/67; TEMP 97.5
== END 2019-04-07 18:17 | disposition short-term general hospital (02) ==
LOC: ED 01:09
DX: T14.91XA Suicide attempt, initial encounter (principal); F19.10 Other psychoactive substance abuse, uncomplicated; F17.210 Nicotine dependence, cigarettes, uncomplicated
CPT/HCPCS: 36415; 80053; 80306; 80307; 81001; 84443; 84703; 85025; 93005; 93010; 96372; 99285